=== PATIENT | male | born 1980 | race Caucasian/White ===

== ENCOUNTER 2017-10-28 13:16 | Emergency (ER) | payer MEDICAID ==
[2017-10-28] MEDS: BENOXINATE HCL/FLUORESCEIN SOD 5 ML OPHTH BOTH EYES (15:11)
== END 2017-10-28 16:16 | disposition home or self-care (01) ==
LOC: FTE 16:16
DX: S05.02XA Injury of conjunctiva and corneal abrasion without foreign body, left eye, initial encounter (principal); X58.XXXA Exposure to other specified factors, initial encounter; Y92.9 Unspecified place or not applicable
CPT/HCPCS: 99283; Z7502